=== PATIENT | male | born 1940 | race Caucasian/White ===

== ENCOUNTER → 2019-06-20 09:23 | Outpatient (BNVA) | payer MEDICARE, OTHER, SELFPAY | PROVIDERS: Family Provider Family Medicine; PCP Family Medicine; Visit Provider Internal Medicine Rheumatology | DX: M94.1 Relapsing polychondritis (principal); Z79.899 Other long term (current) drug therapy; Z11.59 Encounter for screening for other viral diseases; Z11.1 Encounter for screening for respiratory tuberculosis; H20.9 Unspecified iridocyclitis; Z72.89 Other problems related to lifestyle; Z79.52 Long term (current) use of systemic steroids; Z71.89 Other specified counseling; M15.0 Primary generalized (osteo)arthritis; M05.9 Rheumatoid arthritis with rheumatoid factor, unspecified | CPT/HCPCS: 36415; 80076; 82306; 82565; 85025; 85651; 86140; 86480; 86704; 86803; 87340; G0463 ==

== ENCOUNTER → 2019-06-20 10:48 | Outpatient (BNVA) | payer MEDICARE, OTHER, SELFPAY | PROVIDERS: Family Provider Family Medicine; PCP Family Medicine; Visit Provider Internal Medicine Rheumatology | DX: Z79.899 Other long term (current) drug therapy (principal); M94.1 Relapsing polychondritis; Z11.59 Encounter for screening for other viral diseases; H20.9 Unspecified iridocyclitis; Z71.89 Other specified counseling; M15.0 Primary generalized (osteo)arthritis; M05.9 Rheumatoid arthritis with rheumatoid factor, unspecified | CPT/HCPCS: 85025; 86480 ==

== ENCOUNTER → 2019-07-27 08:55 | Outpatient (BNVA) | payer MEDICARE, OTHER, SELFPAY | PROVIDERS: Family Provider Family Medicine; PCP Family Medicine; Visit Provider Internal Medicine Rheumatology | DX: M94.1 Relapsing polychondritis (principal); Z79.899 Other long term (current) drug therapy | CPT/HCPCS: 36415; 85025 ==

== ENCOUNTER → 2019-10-05 10:35 | Outpatient (BNVA) | payer MEDICARE, OTHER, SELFPAY | PROVIDERS: Family Provider Family Medicine; PCP Family Medicine; Visit Provider Internal Medicine Rheumatology | DX: M94.1 Relapsing polychondritis (principal); Z79.899 Other long term (current) drug therapy; H20.9 Unspecified iridocyclitis; M15.0 Primary generalized (osteo)arthritis | CPT/HCPCS: 99214 ==

== ENCOUNTER → 2020-03-15 09:35 | Outpatient (BNVA) | payer MEDICARE, OTHER, SELFPAY | PROVIDERS: Family Provider Family Medicine; PCP Family Medicine; Visit Provider Internal Medicine Rheumatology | DX: M94.1 Relapsing polychondritis (principal); Z79.899 Other long term (current) drug therapy; M15.0 Primary generalized (osteo)arthritis; H20.9 Unspecified iridocyclitis | CPT/HCPCS: 99214 ==